=== PATIENT | male | born 1995 | race African-American/Black ===

== ENCOUNTER 2019-05-10 16:52 | Emergency (ER) | payer MEDICAID ==
[~2019-05-10] VITALS: Ht 185.4 cm; Wt 74.8 kg
[2019-05-10 17:43] LABS: Eosinophils # (auto) 0 uL; Hemoglobin 13.6 g/dL (13.5-17.5); Mean Corpuscular Hgb Conc. 32.6 g/dL (32.0-36.0); Neutrophils # (auto) 3.5 uL; White Blood Cell 7.3 10^3/uL (4.4-10.8)
[2019-05-10 17:44] LABS: Basophils # (auto) 0 uL; Basophils % (auto) 0.5 % (0.0-2.0); Eosinophils % (auto) 0.3 % (0.0-7.0); Hematocrit 41.9 % (41.0-53.0); Lymphocytes # (auto) 3.4 uL; Lymphocytes % (auto) 46.3 % (10.0-50.0); Mean Corpuscular Hemoglobin 23.4 pg (28.0-32.0); Mean Corpuscular Volume 71.8 fL (80.0-100.0); Monocytes # (auto) 0.4 uL; Monocytes % (auto) 4.9 % (0.0-12.0); Nucleated Red Blood Cells % 0.2 %; Platelet Count (auto) 194 10^3/uL (140-450); Red Blood Cells 5.84 10^6/uL (4.5-5.90); Red Cell Distribution Width 16.8 % (11.8-14.3)
[2019-05-10 18:01] LABS: Albumin 4.4 g/dL (3.4-5.0); BUN/Creatinine Ratio 11.5; Calcium 9.4 mg/dL (8.5-10.1); Potassium 3.5 mmol/L (3.5-5.1)
[2019-05-10 18:02] LABS: Bilirubin, Total 0.6 mg/dL (0.2-1.0)
[2019-05-10] MEDS ORDERED: SODIUM CHLORIDE 0.9% 1,000 ML IVB ONE (18:39)
[2019-05-10] MEDS ORDERED: FAMOTIDINE (10MG/ML) 2ML VL IV ONE (18:45)
[2019-05-10] MEDS ORDERED: ONDANSETRON HCL 4 MG/2 ML VIAL IV ONE (18:45)
[2019-05-10] MEDS ORDERED: KETOROLAC TROMETH 30 MG/ML 1ML VIAL IV ONE (18:45)
[2019-05-10 19:31] LABS: Urine WBC None Seen /hpf (0 - 3)
[2019-05-10 19:40] LABS: Urine Amorphous Crystal MANY /hpf (None Seen); Urine Bacteria NONE SEEN /hpf (None Seen); Urine Blood Negative /uL (Negative); Urine Mucus FEW (None Seen); Urine Specific Gravity 1.042 (1.001-1.035)
[2019-05-10 19:57] LABS: Cannabinoid Screen, Urine NEGATIVE (NEGATIVE)
[2019-05-10 20:00] LABS: Alcohol, Urine < 3.0 mg/dL (0-5); Amphetamine Screen, Urine NEGATIVE (NEGATIVE); Barbiturate Scree,Urine NEGATIVE (NEGATIVE); Benzodiazephine Screen, Urine NEGATIVE (NEGATIVE); Cocaine Screen, Urine NEGATIVE (NEGATIVE); Opiate Scree,Urine NEGATIVE (NEGATIVE); Phencyclidine Screen, Urine NEGATIVE (NEGATIVE)
[2019-05-10 20:55] VITALS: BP 130/57
== END 2019-05-10 21:04 | disposition home or self-care (01) ==
LOC: ER 17:11
DX: K29.70 Gastritis, unspecified, without bleeding (principal)
CPT/HCPCS: 36415; 80053; 80307; 81001; 83690; 85025; 94761; 96361; 96374; 96375; 99283; J1885; J2405; J3490; J7030

== ENCOUNTER 2019-06-02 18:12 | Emergency (ER) | payer MEDICAID ==
[~2019-06-02] VITALS: Ht 185.4 cm; Wt 75.7 kg
[2019-06-02 18:59] LABS: Basophils # (auto) 0 uL; Eosinophils # (auto) 0 uL; Monocytes # (auto) 0.2 uL
[2019-06-02 19:02] LABS: Hematocrit 27.8 % (41.0-53.0); Hemoglobin 8.8 g/dL (13.5-17.5); Lymphocytes % (auto) 8.1 % (10.0-50.0); Mean Corpuscular Hemoglobin 23.3 pg (28.0-32.0); Mean Corpuscular Hgb Conc. 31.8 g/dL (32.0-36.0); Mean Corpuscular Volume 73.3 fL (80.0-100.0); Monocytes % (auto) 1.4 % (0.0-12.0); Neutrophils % (auto) 90.5 % (37.0-80.0); Platelet Count (auto) 180 10^3/uL (140-450); Red Cell Distribution Width 16.8 % (11.8-14.3); White Blood Cell 12.2 10^3/uL (4.4-10.8)
[2019-06-02 19:15] LABS: Albumin 3.4 g/dL (3.4-5.0); Potassium 4.1 mmol/L (3.5-5.1)
[2019-06-02 19:17] LABS: BUN/Creatinine Ratio 24.8
[2019-06-02 19:20] LABS: Bilirubin, Total 0.4 mg/dL (0.2-1.0); Total Protein 6.1 g/dL (6.4-8.2)
[2019-06-02] MEDS ORDERED: ONDANSETRON HCL 4 MG/2 ML VIAL IV ONE (19:30)
[2019-06-02] MEDS ORDERED: SODIUM CHLORIDE 0.9% 1,000 ML IV ONE (19:30)
[2019-06-02] MEDS ORDERED: MORPHINE SULF INJ 2 MG/ML SYRINGE 1ML IV ONE (19:30)
[2019-06-02 20:01] LABS: Amylase 70 U/L (25-115); Lipase 72 U/L (73-393)
[2019-06-02 20:05] LABS: Urine Bacteria NONE SEEN /hpf (None Seen); Urine Blood Negative /uL (Negative); Urine Mucus FEW (None Seen); Urine Specific Gravity 1.034 (1.001-1.035); Urine WBC 3 /hpf (0 - 3)
[2019-06-02] MEDS ORDERED: OMNIPAQUE ORAL SOLN 500ml 12mg/ml PO ONE (20:13)
[2019-06-02] MEDS ORDERED: IOHEXOL 300 MG/ML 100ML BOTTLE IJ ONE (20:13)
[2019-06-02 20:17] LABS: Alcohol, Urine < 3.0 mg/dL (0-5); Amphetamine Screen, Urine NEGATIVE (NEGATIVE); Barbiturate Scree,Urine NEGATIVE (NEGATIVE); Benzodiazephine Screen, Urine NEGATIVE (NEGATIVE); Cannabinoid Screen, Urine NEGATIVE (NEGATIVE); Cocaine Screen, Urine NEGATIVE (NEGATIVE); Opiate Scree,Urine NEGATIVE (NEGATIVE); Phencyclidine Screen, Urine NEGATIVE (NEGATIVE)
[2019-06-03 01:05] LABS: Basophils # (auto) 0 uL; Basophils % (auto) 0.2 % (0.0-2.0); Eosinophils # (auto) 0 uL; Lymphocytes # (auto) 2.8 uL; Mean Corpuscular Hemoglobin 24.2 pg (28.0-32.0)
[2019-06-03 01:06] LABS: Eosinophils % (auto) 0.1 % (0.0-7.0); Hematocrit 22.8 % (41.0-53.0); Hemoglobin 7.7 g/dL (13.5-17.5); Lymphocytes % (auto) 29.4 % (10.0-50.0); Mean Corpuscular Hgb Conc. 33.6 g/dL (32.0-36.0); Monocytes # (auto) 0.3 uL; Monocytes % (auto) 3.7 % (0.0-12.0); Neutrophils # (auto) 6.3 uL; Neutrophils % (auto) 66.6 % (37.0-80.0); Platelet Count (auto) 165 10^3/uL (140-450); Red Blood Cells 3.17 10^6/uL (4.5-5.90); Red Cell Distribution Width 17.1 % (11.8-14.3); White Blood Cell 9.5 10^3/uL (4.4-10.8)
[2019-06-03 02:00] VITALS: BP 109/44
== END 2019-06-03 03:01 | disposition home or self-care (01) ==
LOC: EDSEX 18:12 → EDBD 18:12 → ER 18:15
DX: K58.9 Irritable bowel syndrome, unspecified (principal); Z90.49 Acquired absence of other specified parts of digestive tract
CPT/HCPCS: 36415; 74176; 74177; 80053; 80307; 81001; 82150; 83690; 85025; 96360; 99284; J7030; Q9967

== ENCOUNTER 2019-08-31 16:12 | Emergency (ER) | payer MEDICAID ==
[~2019-08-31] VITALS: Ht 185.4 cm; Wt 68.0 kg
[2019-08-31 16:36] VITALS: BP 148/74
[2019-08-31] MEDS ORDERED: PROCHLORPERAZINE EDISYLATE 5 MG/ML 2ML VIAL IV ONE (16:45)
[2019-08-31] MEDS ORDERED: SODIUM CHLORIDE 0.9% 1,000 ML IV ONE (16:45)
[2019-08-31 17:00] LABS: Basophils # (auto) 0 uL; Eosinophils # (auto) 0 uL; Lymphocytes # (auto) 1.9 uL; Monocytes # (auto) 0.3 uL; Neutrophils # (auto) 3.7 uL; Neutrophils % (auto) 62.1 % (37.0-80.0)
[2019-08-31 17:02] LABS: Basophils % (auto) 0.4 % (0.0-2.0); Eosinophils % (auto) 0.2 % (0.0-7.0); Hematocrit 40.3 % (41.0-53.0); Hemoglobin 12.7 g/dL (13.5-17.5); Lymphocytes % (auto) 31.8 % (10.0-50.0); Mean Corpuscular Hemoglobin 19.6 pg (28.0-32.0); Mean Corpuscular Hgb Conc. 31.6 g/dL (32.0-36.0); Monocytes % (auto) 5.5 % (0.0-12.0); Nucleated Red Blood Cells % 0.1 %; Platelet Count (auto) 316 10^3/uL (140-450); Red Cell Distribution Width 18.4 % (11.8-14.3)
[2019-08-31 17:22] LABS: Albumin 4.9 g/dL (3.4-5.0); Calcium 9.6 mg/dL (8.5-10.1); Potassium 3.6 mmol/L (3.5-5.1)
[2019-08-31 17:24] LABS: BUN/Creatinine Ratio 12.3; Bilirubin, Total 0.7 mg/dL (0.2-1.0); Total Protein 8.8 g/dL (6.4-8.2)
== END 2019-08-31 18:16 | disposition left against medical advice (07) ==
LOC: ER 16:12
DX: R11.2 Nausea with vomiting, unspecified (principal); Z90.49 Acquired absence of other specified parts of digestive tract
CPT/HCPCS: 36415; 80053; 85025; 96361; 96374; 99283; J0780; J7030

== ENCOUNTER 2025-05-03 17:07 | Inpatient (IN) | payer MEDICAID ==
[~2025-05-03] VITALS: Ht 185.4 cm; Wt 69.0 kg
--- NOTE | 2025-05-03 18:06 | ED.PDOC ---
History of Present Illness HPI Comments 29-year-old male with PMHx Gastritis presents with a chief complaint of abdominal pain with associated nausea and vomiting. Patient states that his pain is localized to his diffuse abdomen, nonradiating, describes as tenderness. Patient mentions that he had specks of blood in his emesis. Chief Complaint: Abdominal Pain Time Seen by MD: 17:54 Primary Care Provider: HOPE Dillon Notes: Medications, Allergies Allergies: Coded Allergies: NO KNOWN ALLERGIES (Unverified , 06/16/12) Home Meds No Active Prescriptions or Reported Meds Information Source: Patient Mode of Arrival: Ambulatory Severity: Moderate Timing: Days Duration: Since onset Prehospital treatment: None Past Medical History PAST MEDICAL HISTORY: Denies Surgical History: Appendectomy, Denies all surgeries Family History Family History: Reviewed,noncontributory to illness Social History Smoker: Non-Smoker Alcohol: Denies ETOH Use Drugs: Denies Drug Use Lives In: Home Constitutional: denies: chills, diaphoresis, fatigue, fever, malaise, sweats, weakness, others EENTM: denies: blurred vision, double vision, ear bleeding, ear discharge, ear drainage, ear pain, ear ringing, eye pain, eye redness, hearing loss, mouth pain, mouth swelling, nasal discharge, nose bleeding, nose congestion, nose pain, photophobia, tearing, throat pain, throat swelling, voice changes, others Respiratory: denies: cough, hemoptysis, orthopnea, SOB at rest, shortness of breath, SOB with excertion, stridor, wheezing, others Cardiovascular: denies: chest pain, dizzy spells, diaphoresis, Dyspnea on exe rtion, edema, irregular heart beat, left arm pain, lightheadedness, palpitations, PND, syncope, others Gastrointestinal: reports: abdominal pain, nausea, vomiting; denies: abdomen distended, blood streaked bowels, constipated, diarrhea, dysphagia, difficulty swallowing, hematemesis, melena, poor appetite, poor fluid intake, rectal bleeding, rectal pain, others Genitourinary: denies: burning, dysuria, flank pain, frequency, hematuria, incontinence, penile discharge, penile sore, pain, testicle pain, testicle swelling, urgency, others Neurological: denies: dizziness, fainting, headache, left sided numbness, left sided weakness, numbness, paresthesia, pre-existing deficit, right sided numbness, right sided weakness, seizure, speech problems, tingling, tremors, weakness, others Musculoskeletal: denies: back pain, gout, joint pain, joint swelling, muscle pain, muscle stiffness, neck pain, others Integumetry: denies: bruises, change in color, change in hair/nails, dryness, laceration, lesions, lumps, rash, wounds, others Allergic/Immunocompromised: denies: Difficulty Healing, Frequent Infections, Hives, Itching, others Hematologic/Lymphatic: denies: anemia, blood clots, easy bleeding, easy bruising, swollen glands, others Endocrine: denies: excessive hunger, excessive sweating, excessive thirst, excessive urination, flushing, intolerance to cold, intolerance to heat, unexplained weight gain, unexplained weight loss, others Psychiatric: denies: anxiety, bipolar disorder, depression, hopeless, panic disorder, schizophrenia, sleepless, suicidal, others All Other Systems: Reviewed and Negative Physical Exam General Appearance: No Apparent Distress, Normal HEENT: Normal ENT Inspection, Pharynx Normal, TMs Normal Neck: Full Range of Motion, Non-Tender, Normal, Normal Inspection Respiratory: Chest Non-Tender, Lungs Clear, No Accessory Muscle Use, No Respiratory Distress, Normal Breath Sounds Cardiovascular: No Edema, No JVD, No Murmur, No Gallop, Normal Peripheral Pulses, Regular Rate/Rhythm Breast Exam: Deferred Gastrointestinal: No Organomegaly, Non Tender, No Pulsatile Mass, Normal Bowel Sounds, Soft Genitalia: Deferred Pelvic: Deferred Rectal: Deferred Extremities: No calf tenderness, Normal capillary refill, Normal inspection, Normal range of motion, Non-tender, No pedal edema Musculoskeletal : Apperance: Normal Neurologic: Alert, housekeeping cleaner II-XII nml as Tested, No Motor Deficits, Normal Affect, Normal Mood, No Sensory Deficits Cerebellar Function: Normal Reflexes: Normal Skin: Dry, Normal Color, Warm Lymphatic: No Adenopathy Was a procedure done? Was a procedure done?: No Differential Dx Considerations may include: Differential diagnosis includes upper GI bleed such as peptic ulcer disease, esophageal varices, Celeste-Martinez tear, Boerhaave syndrome, and coagulopathy. Patient is found to be anemic which is consistent with his report of hematemesis. However, he has not had any episodes of vomiting blood he while here. He also has signs of anemia and shows renal insufficiency likely due to the above condition. Patient is put on proton pump inhibitor and will be admitted for further evaluation by GI. X-Ray, Labs, Meds, VS Vital Signs Date Time Temp Pulse Resp B/P (MAP) Pulse Ox O2 Delivery O2 Flow Rate FiO2 05/03/25 17:08 98.1 77 18 129/69 100 98.1 Lab Test 05/03/25 18:06 Range/Units White Blood Count 7.0 4.4-10.8 10^3/uL Red Blood Count 5.29 4.5-5.90 10^6/uL Hemoglobin 8.5 L 13.5-17.5 g/dL Hematocrit 28.5 L 41.0-53.0 % Mean Corpuscular Volume 53.8 L 80.0-100.0 fL Mean Corpuscular Hemoglobin 16.1 L 28.0-32.0 pg Mean Corpuscular Hemoglobin Concent 29.8 L 32.0-36.0 g/dL Red Cell Distribution Width 24.2 H 11.8-14.3 % Platelet Count 359 140-450 10^3/uL Mean Platelet Volume 9.5 6.9-10.8 fL Neutrophils (%) (Auto) 52.6 37.0-80.0 % Lymphocytes (%) (Auto) 37.5 10.0-50.0 % Monocytes (%) (Auto) 8.9 0.0-12.0 % Eosinophils (%) (Auto) 0.5 0.0-7.0 % Basophils (%) (Auto) 0.5 0.0-2.0 % Neutrophils # (Auto) 3.7 1.6-8.6 10 ^3/uL Lymphocytes # (Auto) 2.6 0.4-5.4 10 ^3/uL Monocytes # (Auto) 0.6 0-1.3 10 ^3/uL Eosinophils # (Auto) 0 0-0.8 10 ^3/uL Basophils # (Auto) 0 0-0.2 10 ^3/uL Nucleated Red Blood Cells 0.1 % Platelet Estimate Pending Sodium Level 138 136-145 mmol/L Potassium Level 2.9 L 3.5-5.1 mmol/L Chloride Level 98 98-107 mmol/L Carbon Dioxide Level 27 20-31 mmol/L Anion Gap 13 5-15 Blood Urea Nitrogen 16 9-23 mg/dL Creatinine 1.20 0.700-1.30 mg/dL Glomerular Filtration Rate Calc 84 >90 mL/min BUN/Creatinine Ratio 13.3 10.0-20.0 Serum Glucose 90 74-106 mg/dL Calcium Level 10.3 8.7-10.4 mg/dL Lipase 51 12-53 U/L Time of 1ST Reevaluation: 18:24 Reevaluation 1ST: Unchanged Patient Education/Counseling: Diagnosis, Treatment, Need For Follow Up Family Education/Counseling: No Family Present SEPSIS Sepsis Screen Date sepsis recognized/suspect: May 03, 2025 Time Sepsis recognized/suspect: 1709 Recent Procedure: No On Antibiotic Therapy: No Respiratory Rate >20: No Heart Rate >90: No Temp<36 C (96.8 F) or >38.3 C: No SBP <90 or MAP <65 mmHG: No New Acute Mental Status Change: No Is the patient on CPAP, BIPAP,: No Physician Orders Complete Blood Count (05/03/25 17:57) Sodium Chloride 0.9% (05/03/25 18:00) Rbc Morphology (05/03/25 18:06) Potassium Er Tablet (Klor-Con Tablet) (05/03/25 19:15) Vital Signs Date Time Temp Pulse Resp B/P (MAP) Pulse Ox O2 Delivery O2 Flow Rate FiO2 05/03/25 17:08 98.1 77 18 129/69 100 98.1 Laboratory Tests Test 05/03/25 18:06 White Blood Count 7.0 10^3/uL (4.4-10.8) Departure 1 Departure Time of Disposition: 19:12 Impression: Primary Impression: Epigastric pain Additional Impressions: UGI bleed Anemia Qualified Codes: D64.9 - Anemia, unspecified Renal insufficiency Hypokalemia Disposition: ADMITTED INPATIENT Admit to: Med Surg Condition: Serious e-Prescriptions No Active Prescriptions or Reported Meds Critical Care Note Critical Care Time?: Yes (55 min-critical care time only) Critical care comment: Due to concerns for patients condition deteriorating, the care required my high est level of attention and readiness to intervene. I assessed the patient, reviewed the medical records, ordered the appropriate tests and treatments, then reassessed for results and responsiveness. I communicated with medical personnel and consultants and formulated a plan of care. Total critical care time excludes any procedures Stability Stability form required: No Heart Score Heart Score: Heart Score Response (Comments) Value History N/A 0 EKG N/A 0 Age N/A 0 Risk Factors N/A 0 Troponin N/A 0 Total 0 I personally scribed for KELVIN RAINES MD ([email or web address]) on 05/03/25 at 18:06. Electronically submitted by Norbert Calderon ([email or web address]). KELVIN RAINES MD May 03, 2025 18:06
[2025-05-03 18:52] LABS: Sodium 138 mmol/L (136-145)
[2025-05-03 18:53] LABS: Anion Gap 13 (5-15); Carbon Dioxide 27 mmol/L (20-31)
[2025-05-03 18:54] LABS: Calcium 10.3 mg/dL (8.7-10.4)
[2025-05-03 18:55] LABS: Hematocrit 28.5 % (41.0-53.0); Hemoglobin 8.5 g/dL (13.5-17.5); Mean Corpuscular Hemoglobin 16.1 pg (28.0-32.0); Mean Corpuscular Volume 53.8 fL (80.0-100.0); Nucleated Red Blood Cells % 0.1 %
[2025-05-03 18:58] LABS: BUN/Creatinine Ratio 13.3 (10.0-20.0); Blood Urea Nitrogen 16 mg/dL (9-23); Glucose 90 mg/dL (74-106); Lipase 51 U/L (12-53)
[2025-05-03 19:01] LABS: Chloride 98 mmol/L (98-107); Potassium 2.9 mmol/L (3.5-5.1)
[2025-05-03] MEDS: PANTOPRAZOLE 40 MG/10 ML VIAL INJ IV ONE (19:21)
[2025-05-03] MEDS: ONDANSETRON HCL 4 MG/2 ML VIAL IV ONE ×2 (19:21→22:21)
[2025-05-03] MEDS: SODIUM CHLORIDE 0.9% 1,000 ML IV ONE (19:22)
[2025-05-03] MEDS: fentaNYL CITRATE 100 MCG/2 ML VL IV ONE (19:34)
[2025-05-03] MEDS: POTASSIUM CHL 20 Meq TABLET PO ONE (19:38)
[2025-05-03 20:19] LABS: Anisocytosis Moderate
[2025-05-03] MEDS: SODIUM CHLOR 0.9% PF (SALINE LOCK) 10ML VIAL/SYR IV SCH (22:05)
[2025-05-03] MEDS ORDERED: MORPHINE SULFATE INJ 2 MG/ml SYRG IV PRN (22:30)
--- NOTE | 2025-05-03 22:34 | DVHHPRES ---
History of Present Illness Resident Creating Document: CECILVINAY RESIDENT History of Present Illness 29-year-old male with previous history of gastritis and marijuana use disorder in the past, presents to the ER with several episodes of blood mixed vomiting and dark stools since last 4 days. He complains of loss of appetite and nausea as well. He reports having an intermittent epigastric pain 10/10 in intensity, which started few months back,constant, sharp, localized, increased with food intake. He also reports having 8/10 chest pain, which increases with breathing and palpation. The patient reports having lightheadedness. Past medical history: Gastritis Past surgical history: Appendectomy Home medicines: Zofran, trazodone, omeprazole Allergies: none Social: Lives with mother in a home Smoking: No cigarettes Alcohol: Occasionally 1 or 2 shots, last drink was few months back Drugs: Used marijuana for 6 months before quitting last year. PCP: None Code status: Full code Review of Systems Gastrointestinal: Nausea, Vomiting, Melena Other Loss of appetite, lightheadedness,chest pain Allergies: Coded Allergies: NO KNOWN ALLERGIES (Unverified , 06/16/12) Medications Current Medications Medications Dose Ordered Sig/Iqra Route Start Time Stop Time Status Last Admin Dose Admin Sodium Chloride 10 ml Q8HR IV 05/03/25 22:00 05/03/25 22:05 10 ML Sodium Chloride 1,000 ml @ 60 mls/hr [id number] IV 05/03/25 21:30 Ondansetron HCl 4 mg Q4HP PRN IV 05/03/25 21:30 Morphine Sulfate 2 mg Q4HPRN PRN IV 05/03/25 21:30 Pantoprazole Sodium 40 mg BID IV 05/03/25 22:30 Sucralfate 1 gm TID@0600,1130,2200 GT 05/03/25 22:30 Exam Vital Signs Vital Signs Date Time Temp Pulse Resp B/P (MAP) Pulse Ox O2 Delivery O2 Flow Rate FiO2 05/03/25 19:34 151/82 05/03/25 19:31 98.8 73 16 100 98.8 Exam Pt is lying on bed General Appearance: Alert, Oriented X3, Cooperative, Mild distress HEENT: Atraumatic, Mucous membranes moist/pink Respiratory: Clear to auscultation, Normal air movement, No added sounds Cardiovascular: Regular rate, Normal S1, Normal S2, No murmurs Abdominal/ : Active bowel sounds, Soft, no distention, epigastric tenderness present. Extremities: No edema, Normal pulses, No tenderness/swelling Skin: No Significant rash, except past surgical scars Neuro: Normal speech, sensorimotor deficits none Psych/Mental Status: Mental status NL, Mood NL Nurse was there as tank maker wood during examination Labs/Xrays Labs Test 05/03/25 18:06 Range/Units White Blood Count 7.0 4.4-10.8 10^3/uL Red Blood Count 5.29 4.5-5.90 10^6/uL Hemoglobin 8.5 L 13.5-17.5 g/dL Hematocrit 28.5 L 41.0-53.0 % Mean Corpuscular Volume 53.8 L 80.0-100.0 fL Mean Corpuscular Hemoglobin 16.1 L 28.0-32.0 pg Mean Corpuscular Hemoglobin Concent 29.8 L 32.0-36.0 g/dL Red Cell Distribution Width 24.2 H 11.8-14.3 % Platelet Count 359 140-450 10^3/uL Mean Platelet Volume 9.5 6.9-10.8 fL Neutrophils (%) (Auto) 52.6 37.0-80.0 % Lymphocytes (%) (Auto) 37.5 10.0-50.0 % Monocytes (%) (Auto) 8.9 0.0-12.0 % Eosinophils (%) (Auto) 0.5 0.0-7.0 % Basophils (%) (Auto) 0.5 0.0-2.0 % Neutrophils # (Auto) 3.7 1.6-8.6 10 ^3/uL Lymphocytes # (Auto) 2.6 0.4-5.4 10 ^3/uL Monocytes # (Auto) 0.6 0-1.3 10 ^3/uL Eosinophils # (Auto) 0 0-0.8 10 ^3/uL Basophils # (Auto) 0 0-0.2 10 ^3/uL Nucleated Red Blood Cells 0.1 % Platelet Estimate Adequate Large Platelets Few Hypochromasia (manual) Marked Anisocytosis (manual) Moderate Microcytosis Marked Sodium Level 138 136-145 mmol/L Potassium Level 2.9 L 3.5-5.1 mmol/L Chloride Level 98 98-107 mmol/L Carbon Dioxide Level 27 20-31 mmol/L Anion Gap 13 5-15 Blood Urea Nitrogen 16 9-23 mg/dL Creatinine 1.20 0.700-1.30 mg/dL Glomerular Filtration Rate Calc 84 >90 mL/min BUN/Creatinine Ratio 13.3 10.0-20.0 Serum Glucose 90 74-106 mg/dL Calcium Level 10.3 8.7-10.4 mg/dL Lipase 51 12-53 U/L SEPSIS Sepsis Screen Date sepsis recognized/suspect: May 03, 2025 Time Sepsis recognized/suspect: 1709 Recent Procedure: No On Antibiotic Therapy: No Respiratory Rate >20: No Heart Rate >90: No Temp<36 C (96.8 F) or >38.3 C: No SBP <90 or MAP <65 mmHG: No New Acute Mental Status Change: No Is the patient on CPAP, BIPAP,: No Physician Orders Sodium Chloride 0.9% (05/03/25 18:00) Admit (05/03/25 21:) Allergies (05/03/25:) Code Status (05/03/25:) Sodium Chloride Lock (Saline Lock Ns) (05/03/25 22:00) Sodium Chloride 0.9% (05/03/25 21:30) Oxygen Per Hour (05/03/25 21:19) Ondansetron Hcl (Zofran) (05/03/25 21:30) Complete Blood Count (05/04/25 04:00) Comprehensive Metabolic Panel (05/04/25 04:00) Npo (Nothing By Mouth) Diet (05/04/25 Breakfast) Morphine Sulfate Injection (05/03/25 21:30) Notify Md Of Changes From Base (05/03/25 21:19) Stool Occult Blood (05/03/25 22:21) Iron Panel (05/03/25 22:22) Ferritin (05/03/25 22:22) Pantoprazole (Protonix) (05/03/25 22:30) Sucralfate Susp (Carafate Susp) (05/03/25 22:30) Potassium (05/03/25 22:24) Ct Ab Pel Wo Con-No Oral Or Iv (05/03/25 22:28) * [facility] Director Medical Surgical (05/03/25 22:28) Morphine Sulfate Injection (05/03/25 22:30) Ondansetron Hcl (Zofran) (05/03/25 22:30) Urinalysis (05/03/25 22:28) Drug Screen (05/03/25 22:28) Vital Signs Date Time Temp Pulse Resp B/P (MAP) Pulse Ox O2 Delivery O2 Flow Rate FiO2 05/03/25 19:34 151/82 05/03/25 19:31 98.8 73 16 151/82 (105) 100 98.8 05/03/25 17:08 98.1 77 18 129/69 100 98.1 Laboratory Tests Test 05/03/25 18:06 White Blood Count 7.0 10^3/uL (4.4-10.8) Medications Medications Dose Ordered Sig/Iqra Route Start Time Stop Time Status Last Admin Dose Admin Fentanyl Citrate 25 mcg ONCE ONCE IV 05/03/25 19:30 05/03/25 19:31 DC 05/03/25 19:34 25 MCG Ondansetron HCl 4 mg ONCE ONCE IV 05/03/25 18:00 05/03/25 18:01 DC 05/03/25 19:21 4 MG Ondansetron HCl 4 mg ONCE ONCE IV 05/03/25 22:15 05/03/25 22:16 DC 05/03/25 22:21 4 MG Pantoprazole Sodium 40 mg ONCE ONCE IV 05/03/25 18:00 05/03/25 18:01 DC 05/03/25 19:21 40 MG Potassium Chloride 40 meq ONCE ONCE PO 05/03/25 19:15 05/03/25 19:30 DC 05/03/25 19:38 40 MEQ Sodium Chloride 10 ml Q8HR IV 05/03/25 22:00 05/03/25 22:05 10 ML Sodium Chloride 1,000 ml @ 150 mls/hr Q6H40M ONCE IV 05/03/25 18:00 05/04/25 00:39 05/03/25 19:22 150 MLS/HR Assessment/Plan Assessment/Plan Hematemesis/melena due to gastric ulcer/gastritis -NPO -ondansetron -IV fluid -pantoprazole 40 mg IV b.i.d. -sucralfate -CT scan abdomen and pelvis ordered -GI consulted GI prophylaxis: Pantoprazole DVT prophylaxis: Not indicated, patient is ambulatory Diet: NPO Goals of care discussed with the patient for more than 27 minutes: Full code status Case discussed with , patient and RN Plan discussed with: Patient, Other (RN) My Orders Orders - VINAY JACOB RESIDENT Procedure Category Date Status Time Admit ADMIT 05/03/25 Transmitted 21:19 Allergies MARIN 05/03/25 In Process 21:19 Code Status CODE 05/03/25 Transmitted 21:19 Sodium Chloride Lock PHA 05/03/25 In Process (Saline Lock Ns) 22:00 Sodium Chloride 0.9% PHA 05/03/25 In Process 21:30 Oxygen Per Hour RT 05/03/25 Transmitted 21:19 Ondansetron Hcl PHA 05/03/25 In Process (Zofran) 21:30 Complete Blood Count LAB 05/04/25 Verified 04:00 Comprehensive LAB 05/04/25 Verified Metabolic Panel 04:00 Npo (Nothing By DIET 05/04/25 Transmitted Mouth) Diet Breakfast Morphine Sulfate PHA 05/03/25 In Process Injection 21:30 Notify Of Changes MARIN 05/03/25 In Process From Base 21:19 Ct Ab Pel Wo Con-No CT 05/03/25 Transmitted Oral Or Iv 22:28 * [facility] Director Medical Surgical CONS 05/03/25 Transmitted 22:28 Morphine Sulfate PHA 05/03/25 Transmitted Injection 22:30 Ondansetron Hcl PHA 05/03/25 Transmitted (Zofran) 22:30 Urinalysis LAB 05/03/25 Transmitted 22:28 Drug Screen LAB 05/03/25 Transmitted 22:28 Date of Service: May 03, 2025 Billing Provider: CAREY CASTRO MD Common Visit Codes: [id number] INP/OBS CARE (HIGH) Secondary Visit Codes: [id number] CARE PLAN 30 MINUTES VINAY JACOB May 03, 2025 22:34
[2025-05-03 22:43] LABS: Total Iron Binding Capacity 395.0 ug/dL (250-425)
[2025-05-03] MEDS: PANTOPRAZOLE 40 MG/10 ML VIAL INJ IV SCH (22:59)
[2025-05-03] MEDS: SODIUM CHLORIDE 0.9% 1,000 ML IV SCH (22:59)
[2025-05-03] MEDS: SUCRALFATE 1 GM/10 ML ORAL SUSP GT SCH (22:59)
[2025-05-03 23:00] VITALS: BP 142/71; PULSE 68; RESP 18; TEMP 97.6; O2SAT 100
[2025-05-03 23:00] LABS: Iron 15.0 ug/dL (65-175)
[2025-05-03 23:14] VITALS: BP 142/71; PULSE 68; RESP 18; TEMP 97.6; O2SAT 100
[2025-05-03] MEDS ORDERED: TRAZ-227 PO (23:48)
[2025-05-03] MEDS ORDERED: OMEP-434 PO (23:48)
[2025-05-03] MEDS ORDERED: ZOFR4T PO (23:48)
[2025-05-04] VITALS (11 sets, daily range): BP systolic 110–132; BP diastolic 50–72; PULSE 55–89; RESP 16–18; TEMP 97.6–98.2; O2SAT 96–100
[2025-05-04] MEDS: MORPHINE SULFATE INJ 2 MG/ml SYRG IV PRN (00:19)
--- NOTE | 2025-05-04 00:44 | DVH ---
Exam: CT CT AB PEL WO CON-NO ORAL OR IV History: Gi bleeding Comparison Study: None TECHNIQUE: Multidetector CT of the abdomen was performed from lung bases to pubic symphysis. Imaging was performed without IV contrast. Axial, coronal and sagittal multiplanar reformats were obtained fr om the axial data set by the technologist. Radiation Dose Information: Dose-length product is 297.73 mGy*cm FINDINGS: Limited sections of the lung bases demonstrate no focal pulmonary mass. The liver, spleen, pancreas, and both adrenal glands demonstrate no acute findings. The gallbladder is unremarkable. The stomach is unremarkable. The small bowel loops are not dilated. The appendix is not clearly identified, although there are no secondary signs of appendicitis. No colonic obstruction. Bilateral kidneys are unremarkable. No hydronephrosis. The urinary bladder is partially distended. No significant lymphadenopathy. No free air or free fluid. The aorta and IVC demonstrate no acute findings. Visualized osseous structures demonstrate no acute abnormality. IMPRESSION: 1. No acute intra-abdominal process.
[2025-05-04] MEDS: ONDANSETRON HCL 4 MG/2 ML VIAL IV PRN (04:13)
[2025-05-04 06:30] LABS: Hematocrit 22.1 % (41.0-53.0); Nucleated Red Blood Cells % 0.1 %
[2025-05-04 06:34] LABS: Mean Corpuscular Hemoglobin 16.1 pg (28.0-32.0); Mean Corpuscular Volume 54.0 fL (80.0-100.0)
[2025-05-04 06:43] LABS: Hemoglobin 6.6 g/dL (13.5-17.5)
[2025-05-04 07:45] LABS: Alanine Aminotransferase 10 U/L (7-40); Albumin 4.3 g/dL (3.2-4.8); Alkaline Phosphatase 50 U/L (46-116); Anion Gap 9 (5-15); BUN/Creatinine Ratio 15.9 (10.0-20.0); Bilirubin, Total 0.7 mg/dL (0.2-1.0); Blood Urea Nitrogen 17 mg/dL (9-23); Calcium 9.1 mg/dL (8.7-10.4); Carbon Dioxide 26 mmol/L (20-31); Chloride 102 mmol/L (98-107); Glucose 86 mg/dL (74-106); Sodium 137 mmol/L (136-145); Total Protein 6.4 g/dL (5.7-8.2)
[2025-05-04 07:46] LABS: Potassium 3.2 mmol/L (3.5-5.1)
[2025-05-04 09:11] LABS: Anisocytosis Moderate
[2025-05-04] MEDS: POTASSIUM CHL 20MEQ/100ML 100 ML IV ONE (09:42)
[2025-05-04 09:47] LABS: INR 1.29 (0.9-1.15); Partial Thromboplastin Time 21.9 SEC (24.5-34.5); Prothrombin Time 13.3 sec (9.3-11.8)
[2025-05-04 12:31] LABS: Amphetamine Screen, Urine Neg (NEGATIVE); Barbiturate Scree,Urine Neg (NEGATIVE); Benzodiazephine Screen, Urine Neg (NEGATIVE); Cocaine Screen, Urine Neg (NEGATIVE); Opiate Scree,Urine Pos (NEGATIVE); Phencyclidine Screen, Urine Neg (NEGATIVE)
--- NOTE | 2025-05-04 12:31 | DVHPNRES ---
Progress Note Date Seen: May 04, 2025 Resident Creating Document: LISA GU RESIDENT Medical Necessity Reason Pt with a Central, PICC or Fol: No Subjective Review of Systems 29-year-old male with previous history of gastritis(since the age of 17) and marijuana use disorder in the past, presented to the emergency with several episodes of blood mixed vomiting for the last 4 days. The vomit is mixed with blood about 1 tbsp. Patient complains that he is unable to eat or hold down liquid. He reports that is abdominal pain is epigastric 10/10 intensity, sharp, constant, localized and increases with food intake. He also complains that he has chest pain which is of a burning nature after vomiting which increases with breathing. In the past few days he is also feeling lightheaded after vomiting. Patient also reports he has had constipation for the past 5 days. Past medical history: Gastritis Past surgical history: Appendectomy Home medicines: Zofran, trazodone, omeprazole Social: Lives with mother in a home. He does not smoke any cigarettes but used to take marijuana 6 months before quitting last month. Occasionally he drinks alcohol 1-2 shots and the last drink was few months ago Allergies: none PCP: None Code status: Full code 05/04: patient seen at the bedside. Patient still complains of epigastric abdominal pain. He has not vomited since yesterday. Today his hemoglobin was 6.5 which is why we transfused him with 1 unit of packed red blood cells and also because his iron was low started him on IV iron sucrose. CT abdomen pelvis shows no acute process. GI was consulted and they have suggested EGD tomorrow.. Objective vital signs Vital Sign Date Time Temp Pulse Resp B/P (MAP) Pulse Ox O2 Delivery O2 Flow Rate FiO2 05/04/25 11:30 97.6 80 18 122/54 97.6 05/04/25 09:00 98 05/04/25 08:00 Room Air* 0 21 Total Intake and Output 05/03/25 05/03/25 05/04/25 15:00 23:00 07:00 Intake Total 1000 ml 0 ml Balance 1000 ml 0 ml medications Current Medications Medications Dose Ordered Sig/Iqra Route Start Time Stop Time Status Last Admin Dose Admin Sodium Chloride 10 ml Q8HR IV 05/03/25 22:00 05/04/25 05:46 10 ML Sodium Chloride 1,000 ml @ 60 mls/hr [id number] IV 05/03/25 21:30 05/03/25 22:59 60 MLS/HR Ondansetron HCl 4 mg Q4HP PRN IV 05/03/25 21:30 05/04/25 10:39 4 MG Morphine Sulfate 2 mg Q4HPRN PRN IV 05/03/25 21:30 05/04/25 04:13 2 MG Pantoprazole Sodium 40 mg BID IV 05/03/25 22:30 05/04/25 09:42 40 MG Sucralfate 1 gm TID@0600,1130,2200 GT 05/03/25 22:30 05/04/25 05:46 1 GM Morphine Sulfate 1 mg Q6HP PRN IV 05/03/25 22:30 Ondansetron HCl 4 mg Q6HPRN PRN IV 05/03/25 22:30 Iron Sucrose 110 ml @ 110 mls/hr DAILY@1200 IV 05/04/25 12:00 05/08/25 12:59 Examination Pt is lying on bed General Appearance: Alert, Oriented X3, Cooperative, Mild distress HEENT: Atraumatic, Mucous membranes moist/pink Respiratory: Clear to auscultation, Normal air movement, No added sounds Cardiovascular: Regular rate, Normal S1, Normal S2, No murmurs Abdominal/ : Active bowel sounds, Soft, no distention, epigastric tenderness present. Extremities: No edema, Normal pulses, No tenderness/swelling Skin: No Significant rash, except past surgical scars Neuro: Normal speech, sensorimotor deficits none Psych/Mental Status: Mental status NL, Mood NL Nurse was there as financial services professional during examination laboratory and microbiology Laboratory Tests 05/04/25 04:53 Test 05/04/25 04:53 Range/Units Serum Glucose 86 74-106 mg/dL Labs and/or images reviewed: Labs reviewed by me, Image(s) reviewed by me Problem List/Assessment/Plan Problem List/Assessment/Plan # Upper GI bleed likely PUD versus gastritis # possible Acute gastroenteritis, rule out boerhaave's syndrome -full liquid diet -ondansetron 4 mg q.4 PRN -IV fluid NS -pantoprazole 40 mg IV b.i.d. -sucralfate 1 g PO t.i.d. -CT scan abdomen and pelvis 1 shows No acute intra-abdominal process. -GI consulted, suggested: Pt will be scheduled for an EGD tomorrow 05/05/2025. -Morphine 1 g IV q.6 PRN #Iron-deficiency anemia -iron 15, TIBC 395, % saturation 3.8, ferritin 2.0 -1 unit PRBC transfused -IV iron sucrose 1 bag every day for 5 days #Hypokalemia -Repleted # vitamin-D deficiency -Repleted # asymptomatic sinus bradycardia -Monitor GI prophylaxis: Pantoprazole 40 mg IV b.i.d. DVT prophylaxis: Not indicated, patient is ambulatory Diet: NPO after midnight Goals of care discussed with the patient for more than 27 minutes: Full code status Case discussed with Dr. Lomeli, patient and nurse. Plan discussed with: Patient, Other Date of Service: May 04, 2025 Billing Provider: NICOLE LOVE MD Common Visit Codes: [id number] INP/OBS CARE(HIGH) LISA GU RESIDENT May 04, 2025 12:31 NICOLE LOVE MD May 07, 2025 16:55
[2025-05-04 12:32] LABS: Cannabinoid Screen, Urine Neg (NEGATIVE)
[2025-05-04 12:35] LABS: Urine Protein, UAD 1+ (Negative)
--- NOTE | 2025-05-04 13:28 | DVHINCON2 ---
GI Consult Consult Note GI consult note Date of Consultation: 05/04/2025 Chief Complaint: GI bleed with anemia Referring Physician: Dr. Bender H&P: 29-year-old with past medical history of gastritis and marijuana use admitted with severe anemia and GI bleed. Patient has complains of epigastric pain which is on and off in the last few months described as constant sharp localized and pain increases with food intake. At this time patient admits to improve pain. Patient also has nausea and vomiting, last episode yesterday with red blood. Last BM four days ago with dark stool denies red blood in stool. Status post EGD five years ago. Patient has history of anemia no blood transfusions in the past. Patient takes Zofran and omeprazole as his home meds also Past Medical History: Gastritis Past Surgical History: Appendectomy Social History: Smoking: No cigarettes Alcohol: Occasionally 1 or 2 shots, last drink was few months back Drugs: Used marijuana for 6 months before quitting last year. PCP: None Family History: Noncontributory Review of Systems: Constitutional: no fever, chill, weight loss HEENT: no eye pain, no hearing loss, no oral lesion, no scleral icterus Heart: no chest pain, no chest pressure Lung: no cough, no dyspnea with exertion Abdomen: see HPI Physical exam: General: NAD, AAOX3 Chest: lung raines clear to auscultation Heart: RRR, no murmur Abdomen: non-distended, no tenderness to palpation, +BS Labs: Labs Test 05/04/25 11:30 05/04/25 08:55 05/04/25 04:53 05/03/25 18:06 Range/Units Urine Color Yellow Yellow Urine Clarity Clear Clear Urine pH 6.5 5.0-9.0 Urine Specific [place] 1.032 1.001-1.035 Urine Protein 1+ H Negative Urine Ketones Trace Negative Urine Blood Negative Negative /uL Urine Nitrite Negative Negative Urine Bilirubin Negative Negative Urine Urobilinogen 2 H Negative mg/dL Urine Leukocyte Esterase Negative Negative /uL Urine RBC 2 0 - 3 /hpf Urine Microscopic WBC 4 H 0-3 /HPF Urine Squamous Epithelial Cells Few <5 /hpf Urine Bacteria Few H None Seen /hpf Urine Mucus Few None Seen Urine Glucose Normal Normal mg/dL Urine Opiates Screen Pos NEGATIVE Urine Fentanyl Screen Pos NEGATIVE Urine Barbiturates Screen Neg NEGATIVE Urine Phencyclidine Screen Neg NEGATIVE Urine Amphetamines Screen Neg NEGATIVE Urine Benzodiazepines Screen Neg NEGATIVE Urine Cocaine Screen Neg NEGATIVE Urine Cannabinoids Screen Neg NEGATIVE Prothrombin Time 13.3 H 9.3-11.8 sec Prothrombin Time INR 1.29 H 0.9-1.15 Activated Partial Thromboplast Time 21.9 L 24.5-34.5 SEC Hemoglobin A1c < 3.8 <5.7 % A1C Vitamin B12 Level 451 211-911 pg/mL Vitamin D 25-Hydroxy 18.5 L 30.0-100 ng/mL Thyroid Stimulating Hormone (TSH) 2.24 0.55-4.78 uIU/mL White Blood Count 7.1 4.4-10.8 10^3/uL Red Blood Count 4.10 L 4.5-5.90 10^6/uL Hemoglobin 6.6 #*L 13.5-17.5 g/dL Hematocrit 22.1 #L 41.0-53.0 % Mean Corpuscular Volume 54.0 L 80.0-100.0 fL Mean Corpuscular Hemoglobin 16.1 L 28.0-32.0 pg Mean Corpuscular Hemoglobin Concent 29.8 L 32.0-36.0 g/dL Red Cell Distribution Width 23.3 H 11.8-14.3 % Platelet Count 280 140-450 10^3/uL Mean Platelet Volume 9.2 6.9-10.8 fL Neutrophils (%) (Auto) 53.5 37.0-80.0 % Lymphocytes (%) (Auto) 37.0 10.0-50.0 % Monocytes (%) (Auto) 8.4 0.0-12.0 % Eosinophils (%) (Auto) 0.5 0.0-7.0 % Basophils (%) (Auto) 0.6 0.0-2.0 % Neutrophils # (Auto) 3.8 1.6-8.6 10 ^3/uL Lymphocytes # (Auto) 2.6 0.4-5.4 10 ^3/uL Monocytes # (Auto) 0.6 0-1.3 10 ^3/uL Eosinophils # (Auto) 0 0-0.8 10 ^3/uL Basophils # (Auto) 0 0-0.2 10 ^3/uL Nucleated Red Blood Cells 0.1 % Platelet Estimate Adequate Hypochromasia (manual) Moderate Anisocytosis (manual) Moderate Microcytosis Marked Sodium Level 137 136-145 mmol/L Potassium Level 3.2 L 3.5-5.1 mmol/L Chloride Level 102 98-107 mmol/L Carbon Dioxide Level 26 20-31 mmol/L Anion Gap 9 5-15 Blood Urea Nitrogen 17 9-23 mg/dL Creatinine 1.07 0.700-1.30 mg/dL Glomerular Filtration Rate Calc 97 >90 mL/min BUN/Creatinine Ratio 15.9 10.0-20.0 Serum Glucose 86 74-106 mg/dL Calcium Level 9.1 8.7-10.4 mg/dL Magnesium Level 1.9 1.6-2.6 mg/dL Total Bilirubin 0.7 0.2-1.0 mg/dL Aspartate Amino Transferase (AST) 11 L 13-40 U/L Alanine Aminotransferase (ALT) 10 7-40 U/L Alkaline Phosphatase 50 46-116 U/L Total Protein 6.4 5.7-8.2 g/dL Albumin 4.3 3.2-4.8 g/dL Large Platelets Few Iron Level 15 L 65-175 ug/dL Total Iron Binding Capacity 395 250-425 ug/dL Percent Iron Saturation 3.8 L 20-55 % Ferritin 2.0 L 22-322 ng/mL Lipase 51 12-53 U/L Imaging: CT abdomen pelvis IMPRESSION: 1. No acute intra-abdominal process. Assessment: GI bleed Severe anemia History of gastritis History of marijuana use Plan: Discussed with Dr. Frank - Pt will be scheduled for an EGD tomorrow 05/05/2025. Pt was informed of the risks (bleeding, infection, perforation, reaction to sedation medications and cardiopulmonary arrest) and benefit and is agreeable to undergo the procedures. Clear liquid diet Protonix and Zofran Monitor labs Discussed plan with patient and family at bedside Thank you for this consult Date of Service: May 04, 2025 Billing Provider: RJ VALERO Common Visit Codes: CONSULT ONLY Consultation Codes: [id number] CONSULT <60MIN RJ VALERO May 04, 2025 13:28
[2025-05-04] MEDS: IRON SUCROSE COMPLEX 110 ML IV SCH (15:01)
[2025-05-04] MEDS: ERGOCALCIFEROL 50,000 UNIT(1.25MG) CAP PO SCH (18:14)
[2025-05-05] VITALS (9 sets, daily range): BP systolic 123–129; BP diastolic 66–83; PULSE 52–71; RESP 14–20; TEMP 36.1; O2SAT 95–100
[2025-05-05 08:30] LABS: Hematocrit 24.0 % (41.0-53.0); Hemoglobin 7.4 g/dL (13.5-17.5); Mean Corpuscular Hemoglobin 17.5 pg (28.0-32.0); Mean Corpuscular Volume 56.8 fL (80.0-100.0); Nucleated Red Blood Cells % 0.0 %
[2025-05-05 08:37] LABS: Anion Gap 7 (5-15); Carbon Dioxide 29 mmol/L (20-31); Chloride 103 mmol/L (98-107); Sodium 139 mmol/L (136-145)
[2025-05-05 08:39] LABS: Calcium 8.7 mg/dL (8.7-10.4)
[2025-05-05 08:43] LABS: Glucose 77 mg/dL (74-106)
[2025-05-05 08:44] LABS: BUN/Creatinine Ratio 12.0 (10.0-20.0); Blood Urea Nitrogen 14 mg/dL (9-23); Potassium 3.4 mmol/L (3.5-5.1)
[2025-05-05] MEDS ORDERED: GLYCOPYRROLATE 0.2 MG/ML 1ML VIAL ONE (11:16)
[2025-05-05] MEDS ORDERED: ONDANSETRON HCL 4 MG/2 ML VIAL ONE (11:16)
[2025-05-05] MEDS ORDERED: PROPOFOL 10 MG/ML 20 ML IV ONE (11:16)
[2025-05-05] MEDS ORDERED: MIDAZOLAM HCL 2MG/2ML 2ml VIAL (1mg/ml) ONE (11:16)
[2025-05-05] MEDS ORDERED: LIDOCAINE 2% (LOCAL ANESTH.) PF 5ml SDV ONE (11:16)
[2025-05-05] MEDS ORDERED: fentaNYL CITRATE 100 MCG/2 ML VL ONE (11:16)
--- NOTE | 2025-05-05 11:56 | DVHOP2 ---
Operative Report DATE OF OPERATION: 05/05/25 PROCEDURE: Upper Endoscopy with biopsy. PREOPERATIVE INDICATION: The patient is a 29 -year-old male undergoing endoscopy for coffee-ground emesis anemia POSTOPERATIVE DIAGNOSES: 1. 2 cm postbulbar duodenal ulcer with surrounding duodenitis Jitendra classification C with no visible vessel or bleeding 2. Mild gastritis and gastropathy 3. 1 cm sliding-type hiatal hernia with grade a erosive esophagitis 4. Otherwise normal examination up to the 2nd and 3rd part of the duodenum with no active bleeding PROCEDURE PERFORMED BY: Anthnoy Frank GI NURSE: Penny SCOPE: Olympus videoendoscope. ASA CLASS: 2. PREOPERATIVE MEDICATIONS: Mac sedation, Dr. Montes PROCEDURE IN DETAIL: After obtaining an informed consent, the patient was placed on left lateral decubitus position. The patient was then sedated with the above medications. A bite block was placed between his teeth. The endoscope was then passed through the oropharynx, into the esophagus, and through the stomach and pylorus up to the second and third part of the duodenum. The endoscope was then withdrawn. The 2nd and 3rd part of the duodenal were normal. The duodenal bulb and postbulbar area showed [id number] duodenitis There was a 2 cm postbulbar duodenal ulcer Jitendra classification C with no visible vessel or active bleeding The pre-pyloric area antrum and body showed mild gastritis. On retroflexion patient had mild gastropathy in the proximal stomach Gastric biopsies and duodenal biopsies were obtained. The endoscope was then withdrawn into the distal esophagus. Patient had a 1 cm sliding-type hiatal hernia with grade a erosive esophagitis at the GE junction. GE junction biopsies were obtained. The remaining distal and proximal esophagus and oropharynx were unremarkable. There was no fresh or old blood in the upper GI tract at this time The patient tolerated the procedure well without difficulty. COMPLICATIONS : None SPECIMENS: Duodenal biopsies Gastric biopsies GE junction biopsies DISPOSITION: Transfer to the floor Stable PLAN: 1. Await for biopsy result 2. Will place pt on Protonix 40 mg bid IV 3. Carafate 1 g p.o. 4 times a day 4. Start clear liquid diet 5.DC aspirin NSAIDs smoking alcohol 6.Outpatient follow up with me in 4-6 weeks to review results and discuss further management ANTHONY FRANK MD May 05, 2025 11:56
[2025-05-05] MEDS: ONDANSETRON HCL 4 MG/2 ML VIAL IV PRN (13:32)
[2025-05-05] MEDS: POLYETHYLENE GLYCOL 17 GM PWDR PO ONE (14:37)
[2025-05-05] MEDS: POTASSIUM CHL 20 Meq TABLET PO ONE (14:37)
[2025-05-05 15:17] LABS: Hemoglobin 8.3 g/dL (13.5-17.5)
[2025-05-05 15:27] LABS: Hematocrit 27.0 % (41.0-53.0)
--- NOTE | 2025-05-05 16:29 | DVHDSRES ---
Discharge Summary Date of Admission Resident Creating Document: LISA GU RESIDENT May 03, 2025 at 21:19 Date of Discharge: May 05, 2025 Admitting Diagnosis hematemesis Labs/Diagnostic Data: Laboratory Results Test 05/05/25 14:58 05/05/25 07:52 05/04/25 14:04 05/04/25 11:30 Hemoglobin 8.3 g/dL (13.5-17.5) Hematocrit 27.0 % (41.0-53.0) White Blood Count 6.4 10^3/uL (4.4-10.8) Red Blood Count 4.22 10^6/uL (4.5-5.90) Mean Corpuscular Volume 56.8 fL (80.0-100.0) Mean Corpuscular Hemoglobin 17.5 pg (28.0-32.0) Mean Corpuscular Hemoglobin Concent 30.7 g/dL (32.0-36.0) Red Cell Distribution Width 26.8 % (11.8-14.3) Platelet Count 230 10^3/uL (140-450) Mean Platelet Volume 8.3 fL (6.9-10.8) Neutrophils (%) (Auto) 45.3 % (37.0-80.0) Lymphocytes (%) (Auto) 43.4 % (10.0-50.0) Monocytes (%) (Auto) 8.6 % (0.0-12.0) Eosinophils (%) (Auto) 1.9 % (0.0-7.0) Basophils (%) (Auto) 0.8 % (0.0-2.0) Neutrophils # (Auto) 2.9 10 ^3/uL (1.6-8.6) Lymphocytes # (Auto) 2.8 10 ^3/uL (0.4-5.4) Monocytes # (Auto) 0.6 10 ^3/uL (0-1.3) Eosinophils # (Auto) 0.1 10 ^3/uL (0-0.8) Basophils # (Auto) 0 10 ^3/uL (0-0.2) Nucleated Red Blood Cells 0.0 % Sodium Level 139 mmol/L (136-145) Potassium Level 3.4 mmol/L (3.5-5.1) Chloride Level 103 mmol/L (98-107) Carbon Dioxide Level 29 mmol/L (20-31) Anion Gap 7 (5-15) Blood Urea Nitrogen 14 mg/dL (9-23) Creatinine 1.17 mg/dL (0.700-1.30) Glomerular Filtration Rate Calc 87 mL/min (>90) BUN/Creatinine Ratio 12.0 (10.0-20.0) Serum Glucose 77 mg/dL (74-106) Calcium Level 8.7 mg/dL (8.7-10.4) Reticulocyte Count (auto) 1.92 % (0.5-1.5) Plasma/Serum Blood Alcohol 3.5 mg/dL (<10) Urine Color Yellow (Yellow) Urine Clarity Clear (Clear) Urine pH 6.5 (5.0-9.0) Urine Specific [place] 1.032 (1.001-1.035) Urine Protein 1+ (Negative) Urine Ketones Trace (Negative) Urine Blood Negative /uL (Negative) Urine Nitrite Negative (Negative) Urine Bilirubin Negative (Negative) Urine Urobilinogen 2 mg/dL (Negative) Urine Leukocyte Esterase Negative /uL (Negative) Urine RBC 2 /hpf (0 - 3) Urine Microscopic WBC 4 /HPF (0-3) Urine Squamous Epithelial Cells Few /hpf (<5) Urine Bacteria Few /hpf (None Seen) Urine Mucus Few (None Seen) Urine Glucose Normal mg/dL (Normal) Urine Opiates Screen Pos (NEGATIVE) Urine Fentanyl Screen Pos (NEGATIVE) Urine Barbiturates Screen Neg (NEGATIVE) Urine Phencyclidine Screen Neg (NEGATIVE) Urine Amphetamines Screen Neg (NEGATIVE) Urine Benzodiazepines Screen Neg (NEGATIVE) Urine Cocaine Screen Neg (NEGATIVE) Urine Cannabinoids Screen Neg (NEGATIVE) Test 05/04/25 08:55 05/04/25 04:53 05/03/25 18:06 Prothrombin Time 13.3 sec (9.3-11.8) Prothrombin Time INR 1.29 (0.9-1.15) Activated Partial Thromboplast Time 21.9 SEC (24.5-34.5) Hemoglobin A1c < 3.8 % A1C (<5.7) Vitamin B12 Level 451 pg/mL (211-911) Vitamin D 25-Hydroxy 18.5 ng/mL (30.0-100) Thyroid Stimulating Hormone (TSH) 2.24 uIU/mL (0.55-4.78) Platelet Estimate Adequate Hypochromasia (manual) Moderate Anisocytosis (manual) Moderate Microcytosis Marked Magnesium Level 1.9 mg/dL (1.6-2.6) Total Bilirubin 0.7 mg/dL (0.2-1.0) Aspartate Amino Transferase (AST) 11 U/L (13-40) Alanine Aminotransferase (ALT) 10 U/L (7-40) Alkaline Phosphatase 50 U/L (46-116) Total Protein 6.4 g/dL (5.7-8.2) Albumin 4.3 g/dL (3.2-4.8) Large Platelets Few Iron Level 15 ug/dL (65-175) Total Iron Binding Capacity 395 ug/dL (250-425) Percent Iron Saturation 3.8 % (20-55) Ferritin 2.0 ng/mL (22-322) Lipase 51 U/L (12-53) Other Laboratory Tests 05/05/25 14:58 05/05/25 07:52 Brief Hx & Hospital Course: 29-year-old male with previous history of gastritis(since the age of 17) and marijuana use disorder in the past, presented to the emergency with several episodes of blood mixed vomiting for the last 4 days. The vomit is mixed with blood about 1 tbsp. Patient complains that he is unable to eat or hold down liquid. He reports that is abdominal pain is epigastric 10/10 intensity, sharp, constant, localized and increases with food intake. He also complains that he has chest pain which is of a burning nature after vomiting which increases with breathing. In the past few days he is also feeling lightheaded after vomiting. Patient also reports he has had constipation for the past 5 days. Past medical history: Gastritis Past surgical history: Appendectomy Home medicines: Zofran, trazodone, omeprazole Social: Lives with mother in a home. He does not smoke any cigarettes but used to take marijuana 6 months before quitting last month. Occasionally he drinks alcohol 1-2 shots and the last drink was few months ago Allergies: none PCP: None Code status: Full code Pt is lying on bed General Appearance: Alert, Oriented X3, Cooperative, Mild distress HEENT: Atraumatic, Mucous membranes moist/pink Respiratory: Clear to auscultation, Normal air movement, No added sounds Cardiovascular: Regular rate, Normal S1, Normal S2, No murmurs Abdominal/ : Active bowel sounds, Soft, no distention, epigastric tenderness present. Extremities: No edema, Normal pulses, No tenderness/swelling Skin: No Significant rash, except past surgical scars Neuro: Normal speech, sensorimotor deficits none Psych/Mental Status: Mental status NL, Mood NL Nurse was there as elevator mechanic during examination Brief history of hospitalization: Patient came in with hematemesis. We kept him NPO in the beginning and gave him ondansetron 4 mg q.4 PRN. His lab reports showed that his hemoglobin was 6.6 we transfused the patient with 1 unit of packed red blood cells and hemoglobin increased to 7.4. also saw his iron profile which showed a iron-deficiency anemia so we have been giving him IV iron sucrose 1 bag daily since admission. We also gave him pantoprazole 40 mg IV b.i.d., sucralfate [address] A [address] scan abdomen and pelvis showed no acute intra abdominal process. A GI consult was done who suggested EGD. Morphine 1 g IV q.6 PRN was ordered for pain. During hospitalization we also saw in the labs that his potassium and vitamin-D levels were low and they have been repleted. Patient underwent EGD today on 05/05 which showed: 1. 2 cm postbulbar duodenal ulcer with surrounding duodenitis Jitendra classification C with no visible vessel or bleeding ; 2. Mild gastritis and gastropathy ; 3. 1 cm sliding-type hiatal hernia with grade a erosive esophagitis; 4. Otherwise normal examination up to the 2nd and 3rd part of the duodenum with no active bleeding. Biopsy was taken during EGD and patient has been suggested to follow up in 4-6 weeks to review biopsy results and discuss further management outpatient. We rechecked the patient's hemoglobin levels which was 8.3 after EGD. For patient's constipation MiraLAX 17 g powder was given to him. Patient is now stable for discharge and is being sent home with Protonix 40 mg per orally twice a day and sucralfate 1 g per orally 4 times a day. Patient has been advised not to take any alcohol, smoking, NSAIDS, aspirin or spicy food. Patient verbalizes understanding and has agreed to the discharge plan. Instructions: Outpatient follow up with me in 4-6 weeks to review biopsy results and discuss further management Follow up with PCP in 10 days Follow up at discharge clinic within 7 days Continue clear liquid diet and slowly take full liquid diet and progress as tolerated Do not take aspirin, NSAIDs, smoking, alcohol Operations or Procedures Exam: CT CT AB PEL WO CON-NO ORAL OR IV History: Gi bleeding IMPRESSION: No acute intra-abdominal process. Condition at Discharge: Stable Final Diagnosis/Problems List # Upper GI bleed due to grade A erosive esophagitis # 1 cm sliding-type hiatal hernia # Acute mild gastritis, ruled out boerhaave's syndrome # postbulbar duodenal ulcer with surrounding duodenitis Jitendra classification C with no visible vessel or bleeding #Iron-deficiency anemia #Hypokalemia # vitamin-D deficiency # asymptomatic sinus bradycardia Discharge Disposition: Home Discharge Instruct/Medications Diet: See Comment Diet comment: Continue clear liquid diet and slowly take full liquid diet and progress as tolerated Do not take aspirin, NSAIDs, smoking, alcohol Activity: No Restrictions, As Tolerated Follow Up/Referral: Outpatient follow up with me in 4-6 weeks to review biopsy results and discuss further management Follow up with PCP in 10 days Follow up at discharge clinic within 7 days Medications: Protonix 40 mg twice a day for 30 days Carafate 1 g p.o. 4 times a day for 30 days Scheduled Ergocalciferol (Vitamin D 52514 Unit), 50,000 UNIT PO Q7D Ferrous Sulfate (Ferrous Sulfate), 325 MG PO MWF Pantoprazole Sodium Sesquihydr (Pantoprazole Sodium), 40 MG PO BID Sucralfate (Carafate), 1 GM OR TID Miscellaneous Medications Ondansetron Odt 4MG Tab (Zofran Po), 4 MG PO, (Reported) Trazodone Hcl (Trazodone Hcl), 50 MG PO, (Reported) Discontinued Medications Omeprazole Magnesium (Omeprazole), 20 MG PO, (Reported) Discharge Statement: "Patient was advised to return to the ER or call 911 if any headaches, dizziness, shortness of breath, chest pain, abdominal pain, bleeding, fevers, or worsening of medical condition. Patient was counseled about treatment plan, medications, possible side effects, patientverbalized understanding. All questions were answered to the best of my ability. This discharge took greater then 30 minutes in planning, reviewing documentation, counseling the patient, and discussing with other team members." ASSESSMENT ASSESSMENT Assessment # Upper GI bleed due to grade A erosive esophagitis # 1 cm sliding-type hiatal hernia Date of Service: May 05, 2025 Billing Provider: NICOLE LOVE MD Common Visit Codes: [id number] DISCH DAY >30min LISA GU May 05, 2025 16:29 NICOLE LOVE MD May 07, 2025 17:42
[2025-05-05] MEDS ORDERED: FER325T PO (16:48)
[2025-05-05] MEDS ORDERED: SUCR1TAB31 OR (16:48)
[2025-05-05] MEDS ORDERED: ERGO1CAP23 PO (16:48)
[2025-05-05] MEDS ORDERED: PANT40T PO (16:48)
== END 2025-05-05 18:40 | disposition home or self-care (01) | DRG 241 ==
LOC: ER 17:07 → OVERFLOW 21:19 → WEST WING 22:48
PROVIDERS: ADMIT Student in an Organized Health Care Education/Training Program; ATTEND Internal Medicine Gastroenterology
PROC: 30233N1 Transfusion of Nonautologous Red Blood Cells into Peripheral Vein, Percutaneous Approach (ICD-10-PCS; 2025-05-04)
PROC: 0DB68ZX Excision of Stomach, Via Natural or Artificial Opening Endoscopic, Diagnostic (ICD-10-PCS; 2025-05-05)
PROC: 0DB98ZX Excision of Duodenum, Via Natural or Artificial Opening Endoscopic, Diagnostic (ICD-10-PCS; 2025-05-05)
PROC: 0DB48ZX Excision of Esophagogastric Junction, Via Natural or Artificial Opening Endoscopic, Diagnostic (ICD-10-PCS; principal; 2025-05-05 11:24)
DX: K29.71 Gastritis, unspecified, with bleeding (principal); K22.11 Ulcer of esophagus with bleeding; K25.4 Chronic or unspecified gastric ulcer with hemorrhage; D50.0 Iron deficiency anemia secondary to blood loss (chronic); K26.9 Duodenal ulcer, unspecified as acute or chronic, without hemorrhage or perforation; N28.9 Disorder of kidney and ureter, unspecified; K44.9 Diaphragmatic hernia without obstruction or gangrene; K31.9 Disease of stomach and duodenum, unspecified; E87.6 Hypokalemia; E55.9 Vitamin D deficiency, unspecified; R00.1 Bradycardia, unspecified
CPT/HCPCS: 36415; 36430; 43239; 74176; 80048; 80053; 80307; 80320; 81001; 82306; 82607; 82728; 83036; 83540; 83550; 83690; 83735; 84132; 84443; 85014; 85018; 85025; 85045; 85610; 85730; 86850; 86900; 86901; 86920; 96361; 96374; 96375; 99291; G0378; J1756; J2003; J2250; J2405; J2470; J2704; J3480